=== PATIENT | female | born 1960 | race Caucasian/White ===

== ENCOUNTER → 2020-04-30 | Day surgery (SDC) | payer OTHER ==
[~2020-04-30] MED LIST: ASPIR 8181 MG PO; FARXIGA5 MG PO; VASOFLEX D1 CA1 EACH PO; VITAMIN C125 MG PO
== END | disposition home or self-care (01) ==
LOC: ADM 04-28 08:30 → CIR.AMB 06:39 → ADM 08:30
PROVIDERS: ATTEND Obstetrics & Gynecology
DX: N84.0 Polyp of corpus uteri (principal)